=== PATIENT | female | born 1960 | race American Indian/Alaskan Native ===

== ENCOUNTER 2017-09-04 17:05 | Emergency (ER) | payer MEDICAID ==
[2017-09-04 17:15] VITALS: BMI 29.5
[2017-09-04 17:20] VITALS: BP 142/96; PULSE 65; RESP 20; TEMP 98.1; O2SAT 99
[2017-09-04] MEDS ORDERED: Lidocaine 2% Inj (20ml) IJ STA (17:31)
--- NOTE | 2017-09-04 17:35 | ED PDOC ---
Arrival/HPI - General Chief Complaint: Finger,Hand,&Wrist Time Seen by Provider: 09/04/17 17:31 Historian: Patient - History of Present Illness Narrative History of Present Illness (Text): 09/04/17 57 yo female come in for evaluation of Left hand laceration sustained [employer] with knife while cuting cabbage. Pt admits, noted bleeding from wound. Otherwise, pt denies fever, chills, denies obvious deformity to left hand, weakness, sensory or vascular deficits. Ambulate to ED for evaluation, not in any apparent distress. Past Medical History - Provider Review Nursing Documentation Reviewed: Yes - Travel History Have you recently traveled outside [place] w/in the past 3 mons?: No - Infectious Disease Hx of Infectious Diseases: None - Tetanus Immunization Tetanus Immunization: Up to Date - Cardiac Hx Cardiac Disorders: Yes Hx Hypertension: Yes - Pulmonary Hx Respiratory Disorders: No - Neurological Hx Neurological Disorder: No - HEENT Hx HEENT Disorder: No - Renal Hx Renal Disorder: No - Endocrine/Metabolic Hx Endocrine Disorders: No - Hematological/Oncological Hx Blood Disorders: No - Integumentary Hx Dermatological Disorder: No - Musculoskeletal/Rheumatological Hx Musculoskeletal Disorders: Yes Hx Arthritis: Yes - Gastrointestinal Hx Gastrointestinal Disorders: No - Genitourinary/Gynecological Hx Genitourinary Disorders: No - Psychiatric Hx Psychophysiologic Disorder: Yes Hx Depression: Yes Hx Substance Use: No - Surgical History Hx Section: Yes Hx Tonsillectomy: Yes Other/Comment: ectopic - Anesthesia Hx Anesthesia: No Hx Anesthesia Reactions: No Hx Malignant Hyperthermia: No Family/Social History - Physician Review Nursing Documentation Reviewed: Yes Family/Social History: No Known Family HX Smoking Status: Former Smoker Hx Alcohol Use: Yes Frequency of alcohol use: Socially Hx Substance Use: No Allergies/Home Meds Allergies/Adverse Reactions: Allergies No Known Allergies Allergy (Verified 09/04/17 17:16) Home Medications: Home Meds Medication Instructions Recorded Confirmed ALPRAZolam [Xanax] 1 mg PO TID PRN 11/19/16 09/04/17 Enalapril Maleate [Vasotec] 20 mg PO BID 11/19/16 09/04/17 Review of Systems - Physician Review All systems were reviewed & negative as marked: Yes - Review of Systems Constitutional: Normal Musculoskeletal: Normal Skin: Laceration Neurological: Normal Endocrine: Normal Hemo/Lymphatic: Normal Psychiatric: Normal Physical Exam Vital Signs Reviewed: Yes Vital Signs Temp Pulse Resp BP Pulse Ox 09/04/17 17:19 98.1 F 65 20 142/96 H 99 Temperature: Afebrile Blood Pressure: Normal Pulse: Regular Respiratory Rate: Normal Appearance: Positive for: Well-Appearing, Non-Toxic, Comfortable Pain Distress: Mild Mental Status: Positive for: Alert and Oriented X 3 - Systems Exam Upper Extremity: Present: Normal ROM (left hand, no neurovascular deficits.), NORMAL PULSES, Tenderness (mild left hand), Neurovascularly Intact, Capillary Refill < 2s (left hand). No: Swelling, Deformity Neurological: Present: GCS=15, Motor Func Grossly Intact, Normal Sensory Function, Norm Deep Tendon Reflexes Skin: Present: Warm, Dry, Laceration (to left hand, palmar aspect thenar area, 3cm cutaneous, C-shape, mild bloody oozing noted. No wound FB, no edema. No obvious defomrity.) Psychiatric: Present: Alert, Oriented x 3 Medical Decision Making ED Course and Treatment: 09/04/17 On re-evaluation, pt is afebrile, hemodynamicaly stable. left hand: laceration repaired w/sutures. No evidence of ligament or tendon injury. FAROM, no neurovascular deficits, no evidence of wound FB or cellulitis. tetanus is UTD- 2 yrs ago. Pt advised on wound care. ref. to F/U with PMD in 2 days for re-eavl. return to ED if any worsening or new changes. Disposition/Present on Arrival - Present on Arrival Any Indicators Present on Arrival: No History of DVT/PE: No History of Uncontrolled Diabetes: No Urinary Catheter: No History of Decub. Ulcer: No History Surgical Site Infection Following: None - Disposition Have Diagnosis and Disposition been Completed?: Yes Diagnosis: Laceration Disposition: HOME/ ROUTINE Disposition Time: 18:09 Patient Plan: Discharge Condition: STABLE Discharge Instructions (ExitCare): Laceration (ED), Care For Your Stitches (ED) Additional Instructions: KEEP WOUND DRY FOR -3 DAYS CLEAN WITH PEROXIDE DAILY, APPLY ANTIBIOTIC CREAM TOPICALLY SUTURE REMOVAL IN 7-10 DAYS FOLLOW UP WITH PMD IN 2 DAYS FOR WOUND CHECK NEED RETURN TO ED IF ANY SIGN OF INFECTION. Referrals: [facility] [place] - Follow up with primary Laceration - Laceration Repair LEFT HAND Wound Length (In cm): 1.18 in Description Of Wound: Irregular (C-shape) Anesthesia: Lidocaine 2% Wound Examination: Irrigated With Saline, No FB With Wound Exploration, No Tendon Injury With Wound Exploration Wound Closure: Suture (#8) Suture Technique And Material Used: Interrupted, Nylon (4-0) Wound Complexity: Simple
== END 2017-09-04 18:24 | disposition home or self-care (01) ==
LOC: ED 17:05
DX: S61.412A Laceration without foreign body of left hand, initial encounter (principal); W26.0XXA Contact with knife, initial encounter; Y93.G1 Activity, food preparation and clean up; Y92.89 Other specified places as the place of occurrence of the external cause